=== PATIENT | female | born 1985 | race Caucasian/White ===

== ENCOUNTER 2017-01-20 08:58 | Emergency (ER) | payer OTHER ==
[~2017-01-20] VITALS: Ht 162.6 cm; Wt 60.9 kg
[~2017-01-20 08:58] MED LIST: ENDOCET 5-3251 EACH PO; Motrin PO
[2017-01-20 10:21] LABS: EOSINOPHIL (%) 0.6 % (0-5); HEMATOCRIT 36.7 % (36.0-46.0); IMMATURE GRANULOCYTE (%) 0.1 % (0.0-0.7); IMMATURE GRANULOCYTE COUNT 0.1 K/uL; LYMPHOCYTE COUNT 1.2 K/uL (1.0-2.8); MCH 29.6 PG (29.0-34.0); MCHC 33.2 G/DL (30.0-36.0); MCV 89.1 FL (83-99); MEAN PLAT.VOLUME 10.8 uM^3 (9.5-12.4); MONOCYTE (%) 6.8 % (3-12); MONOCYTE COUNT 0.5 K/uL (0-0.8); NEUTROPHIL (%) 74.4 % (45-76); NEUTROPHIL COUNT 5.1 K/uL (1.8-6.4); PLATELET COUNT 239 K/uL (156-360); RBC DIS.WIDTH-CV 12.1 % (11.8-14.6); RBC DIS.WIDTH-SD 38.6 % (39-53); RED BLOOD COUNT 4.12 M/uL (3.80-5.20); WHITE BLOOD COUNT 6.8 K/uL (4.1-10.2)
[2017-01-20 10:27] LABS: CHLORIDE 109 mEq/L (99-109); POTASSIUM 4.4 mEq/L (3.7-5.4); SODIUM 142 mEq/L (136-147)
[2017-01-20 10:29] LABS: GLUCOSE 98 mg/dL (70-99)
[2017-01-20 10:30] LABS: ANION GAP 9 MEQ/L (2-14)
[2017-01-20 10:31] LABS: TOTAL BILIRUBIN 0.4 mg/dL (0.0-1.0)
[2017-01-20 10:32] LABS: ALKALINE PHOSPHATASE 31 IU/L (3-129)
[2017-01-20 10:33] LABS: GFR ESTIMATE (CALCULATED) > 59 mL/min/
[2017-01-20 10:34] LABS: UREA NITROGEN (BUN) 14 mg/dL (9-23)
[2017-01-20 10:43] LABS: QUANTITATIVE HCG < 4.0 MIU/ML
[2017-01-20 11:23] LABS: ADD MIUA? YES; BILIRUBIN NEGATIVE; BLOOD SMALL; COLOR YELLOW ((YELLOW)); GLUCOSE (STRIP) NEGATIVE; KETONES 5; LEUKOCYTES TRACE; NITRITE NEGATIVE; PROTEIN (STRIP) 30; SPECIFIC GRAVITY 1.025 (1.000-1.030); UROBILINOGEN 0.2 MG/DL (0.2-1.0)
[2017-01-20 11:37] LABS: BACTERIA NONE SEEN /HPF; EPITHELIAL CELLS 2+ /HPF; MUCUS 2+ /LPF; RED BLOOD CELLS 0-5 /HPF (0-5); WHITE BLOOD CELLS 0-5 /HPF (0-5)
[2017-01-20] MEDS ORDERED: ZOFRAN4 MG PO (14:03)
[2017-01-20] MEDS ORDERED: MOTRIN800 MG PO (14:03)
[2017-01-20 15:02] VITALS: BP 101/66
[2017-01-24 12:57] LABS: CHLAMYDIA TRACHOMATIS INVALID; NEISSERIA GONORRHOEAE INVALID
== END 2017-01-20 15:19 | disposition home or self-care (01) ==
LOC: EME 08:58
PROVIDERS: Emergency Medicine
DX: R10.31 Right lower quadrant pain (principal); G89.29 Other chronic pain; N85.8 Other specified noninflammatory disorders of uterus; F17.200 Nicotine dependence, unspecified, uncomplicated
CPT/HCPCS: 74177; 76856; 80053; 81003; 84702; 85025; 87210; 87491; 87591; 99281; 99284; J2270; J2405; J7030

== ENCOUNTER 2017-04-13 12:55 | Day surgery (SDC) | payer OTHER ==
[~2017-04-13] VITALS: Ht 162.6 cm; Wt 60.0 kg
[~2017-04-13 12:55] MED LIST changes: +MOTRIN800 MG PO; +ZOFRAN4 MG PO
[2017-04-13 13:14] VITALS: BP 122/75
[2017-04-13] MEDS ORDERED: IBUPROFEN800 MG PO (16:31)
[2017-04-13] MEDS ORDERED: ENDOCET 5-3251 EACH PO (16:31)
[2017-04-13 18:10] VITALS: BP 109/61
[2017-04-13 19:10] VITALS: BP 110/65
[2017-04-13 21:35] VITALS: BP 110/61
== END 2017-04-13 21:47 | disposition home or self-care (01) ==
LOC: SDC 12:55
DX: N87.9 Dysplasia of cervix uteri, unspecified (principal); N94.6 Dysmenorrhea, unspecified; N73.6 Female pelvic peritoneal adhesions (postinfective); F41.9 Anxiety disorder, unspecified; Z83.3 Family history of diabetes mellitus; F17.210 Nicotine dependence, cigarettes, uncomplicated
CPT/HCPCS: 88307; 88342 TC; J0131; J0330; J0690; J1100; J1170; J2250; J2405; J2710; J3010